=== PATIENT | female | born 1965 | race Caucasian/White ===

== ENCOUNTER → 2017-12-20 14:33 | Outpatient (CLI) | payer OTHER, SELFPAY ==
[2017-12-26 10:06] LABS: HPV APTIMA, High Risk Negative (Negative)
== END ==
PROVIDERS: Family Provider Family Medicine; PCP Family Medicine; Visit Provider Obstetrics & Gynecology
DX: Z12.4 Encounter for screening for malignant neoplasm of cervix (principal)
CPT/HCPCS: 88175; G0145

== ENCOUNTER → 2019-02-03 | Outpatient (CLI) | payer OTHER, SELFPAY ==
--- NOTE | 2019-02-03 07:00 | BI_ITS ---
MAMMOGRAPHY - BILATERAL SCREENING REASON FOR EXAM: Female, 53 years old. Routine annual screening examination. PERTINENT HISTORY: Non-contributory. TECHNIQUE: Digital bilateral breast sergei (3D mammographic acquisition) in the CC and MLO projections. 2-D mediolateral oblique (MLO) and craniocaudad (CC) views of both breasts were obtained. CAD: Full Field Digital Mammography with Computer Added Detection was performed. COMPARISON: Comparison is made with prior to examination dated December 23, 2017. FINDINGS: Breast Composition: The breasts are heterogeneously dense, which may obscure small masses. There are no dominant masses or suspicious calcifications. No other significant abnormalities are identified. There has been no significant change since the prior study. BI/SCREEN MAMM (CAD) W/SERGEI BILAT IMPRESSION: Stable bilateral screening mammogram. Yearly follow-up mammogram recommended. (A) ASSESSMENT CATEGORY: BIRADS Category 1: Negative. A letter regarding these results will be sent to the patient by the facility within 30 days. Approximately 10% of breast cancers are not detected by mammography. A normal mammogram should not delay biopsy of a clinically suspicious abnormality. [id number] Electronically Signed: Fernando Avila, at 9:24 EDT , Service support ,
== END | disposition home or self-care (01) ==
PROVIDERS: Family Provider Family Medicine; PCP Family Medicine; Referring Provider Nurse Practitioner Women's Health; Visit Provider Nurse Practitioner Women's Health
DX: Z12.31 Encounter for screening mammogram for malignant neoplasm of breast (principal)
CPT/HCPCS: 77063; 77067

== ENCOUNTER 2020-01-19 10:06 | Emergency (ER) | payer OTHER, SELFPAY ==
[2019-07-15 09:57] VITALS: BMI 20.4
[2020-01-19 10:07] VITALS: PULSE 64; RESP 16; TEMP 36.6; O2SAT 98; BMI 25.2
--- NOTE | 2020-01-19 10:27 | EKG12_ITS ---
Test Reason : Blood Pressure : / mmHG Vent. Rate : 052 BPM Atrial Rate : 052 BPM P-R Int : 158 ms QRS Dur : 086 ms QT Int : 460 ms P-R-T Axes : 019 002 012 degrees QTc Int : 427 ms Sinus bradycardia with sinus arrhythmia Voltage criteria for left ventricular hypertrophy Inferior infarct , age undetermined Abnormal ECG Confirmed by VANITA JORGENSEN, CAR ([id number]), subeditor DAWN BANDA ([id number]) on 01/26/2020 2:45:23 PM Referred By: MIGUEL ANGEL Confirmed By:CAR WALDRON MD
--- NOTE | 2020-01-19 10:29 | ED.DCSUM_ITS ---
- ER Visit Summary Date of Service: 01/19/20 Chief Complaint: High blood pressure History of Present Illness: The patient is a 54 F who presents with high blood pressure for the past 4 days. Patient states her blood pressures been in the 160s at home. Patient states she takes atenolol for her blood pressure. Patient states this has caused some bradycardia with her heart rate into the upper 40s. Patient states she called her primary care physician who told her to decrease the atenolol because of the bradycardia. Patient states she feels lightheaded when her blood pressure is high. Patient denies any chest pain or shortness of breath. Patient admits to a dry cough. Patient denies any fevers or chills. Patient denies any nausea or vomiting. Patient states she did not take her atenolol this morning. Physical Examination: Vital signs are stable except for an elevated blood pressure of 180/110. Patient is afebrile. Patient is in no acute distress. Oral mucosa is pink and moist. Neck is supple. Trachea is midline. There is no JVD noted. Heart was regular rate and rhythm. Lungs are clear and equal bilaterally. Abdomen is soft. Bowel sounds are normal. There is no tenderness. There is no rebound or guarding noted. Skin is warm dry. Cranial nerves II through XII are intact. There are no focal motor or sensory deficits noted. Extremities are intact. There is no calf tenderness or edema. Test Results: EKG showed sinus bradycardia with a rate of 52. There are no acute ST or T wave changes. CBC, basic metabolic profile, troponin were obtained and were within normal limits. Portable chest x-ray was obtained. There is no acute cardiopulmonary process. This was interpreted by the radiologist and reviewed by myself. Emergency Department Course and Treatment: Patient was given a dose of clonidine here. Patient's blood pressure improved to 130/93. Case was discussed with Dr. Rhodes. She recommended starting the patient on hydrochlorothiazide 25 mg. Patient was given a prescription for this. Patient was instructed to continue her atenolol. Patient was instructed to follow-up with her primary care physician in 5 to 7 days. Patient understood and was agreeable with the plan. All questions were answered. Disposition: Discharge home Impression: 1. Hypertension This note was generated with [employer] software. It may contain incorrect words, spelling, and punctuation that were not noted in review of the chart prior to signing ED Disposition - Plan for ED Patient: Disposition: Home or Assisted Living Diagnosis: Hypertension Instructions: ED Hypertension Established Prescriptions: Hydrochlorothiazide [Hctz] 25 mg PO DAILY #30 tab Prescription Printed Referrals: Sarah Rhodes DO [Primary Care Provider] - 5-7 Days
--- NOTE | 2020-01-19 10:31 | NURSING ---
NO OLD EKGS
[2020-01-19 11:00] VITALS: BP 180/110; PULSE 53; RESP 16; O2SAT 97
--- NOTE | 2020-01-19 11:05 | RAD_ITS ---
STUDY: X-RAY CHEST REASON FOR EXAM: Female, 54 years old. High bp since fri. TECHNIQUE: Single AP portable view of the chest. COMPARISON: None. FINDINGS: The lungs are clear and expanded. There is no demonstrated pleural abnormality. Normal size heart. Normal mediastinum and janay. Normal visualized pulmonary arteries. Normal visualized aortic arch and descending thoracic aorta. There are diffuse degenerative changes of the visualized thoracic spine. There is degenerative osteoarthritis of the bilateral shoulders. There is no demonstrated abnormality of the visualized soft tissue structures of the upper abdomen. RAD/Chest 1 View (Portable) IMPRESSION: Degenerative changes, as described above. No demonstrated acute cardiopulmonary process. Electronically Signed: Sriram Zamora, at 11:38 EDT Tel , Service support ,
[2020-01-19 11:09] LABS: Absolute Lymphocyte Count 1.48 X10^3/uL (0.83-4.51); Absolute Neutrophil Count 2.4 X10^3/uL (2.0-7.7); Basophil# 0.01 X10^3/uL; Basophil% 0.2 % (0-1); Eosinophil# 0.04 X10^3/uL; Hematocrit 42.2 % (37-47); Hemoglobin 14.3 g/dL (12.0-15.0); Lymphocyte # 1.48 X10^3/ul (4.0); Lymphocyte % 35.4 % (19-41); Mean Corp Hgb Conc 33.9 g/dL (32-36); Mean Corpuscular Hgb 33.2 pg (27.0-32.0); Mean Corpuscular Volume 97.9 fL (81-99); Mean Platelet Vol. 10.2 fl (6.2-12.0); Monocyte# 0.26 X10^3/uL; Monocyte% 6.2 % (0-10); NRBC Flagged by Analyzer 0 % (0-5); Neutrophil # 2.38 X10^3/uL (2.7-7.7); Platelet Count 257 K/mm3 (150-450); RBC Distribution Width SD 39.6 fl (35.1-43.9); Red Blood Count 4.31 M/mm3 (4.2-5.4); White Blood Count 4.2 K/mm3 (4.4-11.0)
[2020-01-19 11:21] LABS: Anion Gap 6 (5-15); BUN 16 mg/dL (7-18); BUN/Creat Ratio 16.9 RATIO (10-20); Calcium,Total 9.2 mg/dL (8.5-10.1); Chloride 109 mmol/L (98-107); Creatinine, Serum 0.95 mg/dL (0.55-1.02); EST Glomerular Filtration Rate 65 mL/min (>60); Est Glom Filt Rate - Afr Amer 79 mL/min (>60); Estimated Creatinine Clearance 48.63 ml/min; Glucose 98 mg/dL (74-106); Potassium 3.8 mmol/L (3.5-5.1); Sodium Level 144 mmol/L (136-145)
[2020-01-19 11:56] VITALS: BP 174/99
[2020-01-19] MEDS: cloNIDine HCl 0.2 MG Tablet PO (12:04)
[2020-01-19 12:09] VITALS: BP 175/97; PULSE 52; RESP 13; O2SAT 99
[2020-01-19 13:37] VITALS: BP 130/93; PULSE 51; RESP 17; O2SAT 98
[2020-01-19 14:40] VITALS: BP 108/86; PULSE 60; RESP 16; O2SAT 99
== END 2020-01-19 14:48 | disposition home or self-care (01) ==
PROVIDERS: Emergency Provider Emergency Medicine; PCP Family Medicine
DX: I10 Essential (primary) hypertension (principal)
CPT/HCPCS: 71045; 80048; 84484; 85025; 93005; 99285; A4216

== ENCOUNTER → 2020-08-30 14:15 | Outpatient (CLI) | payer OTHER, SELFPAY ==
[2020-07-18 08:15] VITALS: BMI 21.8
--- NOTE | 2020-08-30 14:18 | BI_ITS ---
MAMMOGRAPHY - BILATERAL SCREENING REASON FOR EXAM: Female, 55 years old. Routine annual screening examination. PERTINENT HISTORY: Non-contributory. TECHNIQUE: Digital bilateral breast sergei (3D mammographic acquisition) in the CC and MLO projections. 2-D mediolateral oblique (MLO) and craniocaudad (CC) views of both breasts were obtained. CAD: Full Field Digital Mammography with Computer Added Detection was performed. COMPARISON: Comparison is made with prior study dated 02/03/2019. FINDINGS: Breast Composition: The breasts are heterogeneously dense, which may obscure small masses. There are no dominant masses or suspicious calcifications. No other significant abnormalities are identified. There has been no significant change since the prior study. BI/SCREEN MAMM (CAD) W/SERGEI BILAT IMPRESSION: Stable bilateral screening mammogram. Yearly follow-up mammogram recommended. (A) ASSESSMENT CATEGORY: BIRADS Category 1: Negative. A letter regarding these results will be sent to the patient by the facility within 30 days. Approximately 10% of breast cancers are not detected by mammography. A normal mammogram should not delay biopsy of a clinically suspicious abnormality. [id number] Electronically Signed: Fernando Avila, at 9:17 EST , Service support ,
== END ==
PROVIDERS: PCP Family Medicine; Referring Provider Obstetrics & Gynecology; Visit Provider Obstetrics & Gynecology
DX: Z12.31 Encounter for screening mammogram for malignant neoplasm of breast (principal)
CPT/HCPCS: 77063; 77067

== ENCOUNTER 2021-03-02 22:37 | Emergency (ER) | payer OTHER, SELFPAY ==
[2020-07-18 08:15] VITALS: BMI 21.8
[2021-03-02 22:38] VITALS: BP 181/103; PULSE 63; RESP 16; TEMP 36.6; O2SAT 98; BMI 20.7
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
[2021-03-02 23:36] VITALS: BP 168/88; PULSE 79
== END 2021-03-02 23:36 | disposition home or self-care (01) ==
LOC: ED 23:23
PROVIDERS: Emergency Provider Emergency Medicine; PCP Family Medicine
DX: S06.0X0A Concussion without loss of consciousness, initial encounter (principal); V89.0XXA Person injured in unspecified motor-vehicle accident, nontraffic, initial encounter; Z87.891 Personal history of nicotine dependence; Z79.82 Long term (current) use of aspirin; Z79.899 Other long term (current) drug therapy
CPT/HCPCS: 99282

== ENCOUNTER → 2022-03-08 | Outpatient (CLI) | payer OTHER, SELFPAY ==
[2022-03-08 15:10] LABS: Absolute Lymphocyte Count 1.88 X10^3/uL (0.83-4.51); Absolute Neutrophil Count 3.6 X10^3/uL (2.0-7.7); Basophil# 0.01 X10^3/uL; Basophil% 0.2 % (0-1); Eosinophil# 0.05 X10^3/uL; Eosinophils% 0.8 % (0-5); Hematocrit 37.1 % (37-47); Hemoglobin 12.9 g/dL (12.0-15.0); Lymphocyte # 1.88 X10^3/ul (0.83-4.51); Lymphocyte % 30.8 % (19-41); Mean Corp Hgb Conc 34.8 g/dL (32-36); Mean Corpuscular Hgb 33.7 pg (27.0-32.0); Mean Corpuscular Volume 96.9 fL (81-99); Mean Platelet Vol. 10.3 fl (6.2-12.0); Monocyte# 0.52 X10^3/uL; Monocyte% 8.5 % (0-10); NRBC Flagged by Analyzer 0 % (0-5); Neutrophil # 3.63 X10^3/uL (2.7-7.7); Neutrophil % 59.4 % (47-70); Platelet Count 264 K/mm3 (150-450); RBC Distribution Width CV 11.6 % (11.6-14.6); RBC Distribution Width SD 40.8 fl (35.1-43.9); Red Blood Count 3.83 M/mm3 (4.2-5.4); White Blood Count 6.1 K/mm3 (4.4-11.0)
[2022-03-08 15:47] LABS: ALB/GLOB Ratio 1.3 RATIO (0.9-2.4); AST(SGOT) 41 U/L (15-37); Alanine Aminotransfer ALT/SGPT 32 U/L (13-56); Albumin, Serum 3.9 g/dL (3.2-5.0); Alkaline Phosphatase 48 U/L (45-117); Anion Gap 6 (5-15); BUN 19 mg/dL (7-18); BUN/Creat Ratio 23.7 RATIO (10-20); Calcium,Total 9.3 mg/dL (8.5-10.1); Chloride 102 mmol/L (98-107); Cholesterol 257 mg/dL (200); EST Glomerular Filtration Rate 79 mL/min (>60); Est Glom Filt Rate - Afr Amer 95 mL/min (>60); Globulin 3.1 g/dL (2.2-4.2); Glucose 96 mg/dL (74-106); High Density Lipoprotein 63 mg/dL; Potassium 3.5 mmol/L (3.5-5.1); Sodium Level 137 mmol/L (136-145); T4 Free Direct 0.89 ng/dL (0.76-1.46); Thyroid Stim Hormone (TSH) 2.37 uIU/mL (0.358-3.74); Triglycerides 83 mg/dL; Very Low Density Lipoprotein 17 mg/dL (5-40)
== END | disposition home or self-care (01) ==
LOC: MTLAB 13:19
PROVIDERS: PCP Family Medicine; Referring Provider Family Medicine; Visit Provider Family Medicine
DX: Z00.00 Encounter for general adult medical examination without abnormal findings (principal); R00.1 Bradycardia, unspecified
CPT/HCPCS: 36415; 80053; 80061; 84439; 84443; 85025

== ENCOUNTER 2022-06-09 13:52 | Emergency (ER) | payer OTHER, SELFPAY ==
[2022-06-09 13:53] VITALS: BP 169/112; PULSE 115; RESP 18; TEMP 36.3; O2SAT 99; BMI 20.7
--- NOTE | 2022-06-09 14:03 | EKG12_ITS ---
Test Reason : DYSRHYTHMIA Blood Pressure : / mmHG Vent. Rate : 079 BPM Atrial Rate : 079 BPM P-R Int : 162 ms QRS Dur : 092 ms QT Int : 380 ms P-R-T Axes : 065 073 053 degrees QTc Int : 435 ms Normal sinus rhythm Normal ECG Confirmed by VANITA JORGENSEN, CAR ([id number]), assistant editor HUE TOURE ([id number]) on 06/11/2022 9:28:22 AM Referred By: NEHAL Confirmed By:CAR WALDRON MD
--- NOTE | 2022-06-09 14:04 | EX.ED.DYSGE1 ---
HPI History of Present Illness Chief Complaint: Palpitations Narrative Narrative: Patient with past medical history of hypertension, family history of early coronary artery disease presents with lightheadedness and heart palpitations. She states that she went to lunch with her girlfriend, and afterwards, was shopping at [employer] when she felt her heart racing and pounding, not skipping a beat, and she felt lightheaded as if she were going to pass out. She had to lean over. She has improved. She denies that they were vertiginous type symptoms. No nausea or vomiting. No chest pain or shortness of breath. No diaphoresis. No recent nausea or vomiting. No diarrhea. She did state that she felt flushed all over her body. [facility] Medical History Abnormal Pap smear of cervix Genital HSV HSV (herpes simplex virus) infection Home Medications B-complex with vitamin C 1 cap PO QDAY 12/20/17 [History Last Taken Unknown] cholecalciferol (vitamin D3) 50 mcg (2,000 unit) capsule 2,000 unit PO QDAY 12/20/17 [History Last Taken Unknown] hydrochlorothiazide 25 mg tablet 25 mg PO DAILY #30 tabs 01/19/20 [Rx Last Taken Unknown] magnesium oxide 400 mg PO DAILY 07/18/20 [History Last Taken Unknown] aspirin 81 mg tablet 81 mg PO DAILY 03/02/21 [History Last Taken Unknown] valacyclovir 500 mg tablet (Valtrex) 500 mg PO QDAY #90 tabs 08/08/21 [Rx Last Taken Unknown] fluconazole 150 mg tablet 150 mg PO .COMPLEX #2 tabs 08/09/21 [Rx Last Taken Unknown] estradiol-norethindrone acet 1 mg-0.5 mg tablet (Mimvey) 1 tab PO QDAY #84 tabs 06/06/22 [Rx Last Taken Unknown] Allergy/AdvReac Type Severity Reaction Status Date / Time No Known Allergies Allergy Verified 06/09/22 13:55 Family History Father Heart disease Prostate cancer Mother Diabetes Hypertension Surgical History S/P hernia repair Status post colposcopy Social History Smoking Status: Former smoker alcohol intake: current details: wine occasionally substance use type: does not use caffeine: Yes what type of physical activity do you participate in: yoga and weight training frequency: 3-4 times per week seatbelt use: always do you feel safe at home: Yes additional social history: 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 [place] flushed all over her body. HEENT: No sore throat. No neck pain. No loss of vision. No rhinorrhea. Cardiovascular: No chest pain. Positive fast pounding heart rate/palpitations. No pedal edema. Respiratory: No cough, no shortness of breath. Abdominal: No abdominal pain. No nausea. No vomiting. Genitourinary: No dysuria. No hematuria. Musculoskeletal: No myalgias. No arthralgias. Neurologic: No headaches. No dizziness. Positive lightheadedness. Skin: No rash. No change in color. Psychiatric: No depression. No anxiety. EXAM Physical Exam Narrative Exam Narrative: Afebrile. Vital signs noted. HEENT: Normocephalic. Atraumatic. PERRL, EOMI. Neck soft and supple. No point tenderness or step off. Cardiovascular: Positive regular tachycardia. No murmurs, rubs, or gallops appreciated. Respiratory: No tachypnea. Lungs clear to auscultation bilaterally. Gastrointestinal: Abdomen soft, nontender, with normoactive bowel sounds. No rebound or guarding. Neurological: Awake. Alert. Nonfocal, nonlateralizing. Skin: No rash. Normal color. No pallor. Musculoskeletal: No pedal edema. Full range of motion extremities. Const Vital Signs: 06/09/22 13:53 06/09/22 14:17 06/09/22 14:51 Temperature 97.3 F L Temperature Source Temporal Pulse Rate 115 H 63 Pulse Rate [Lying] 56 L Pulse Rate [Sitting (for 1 minute prior to obtaining)] 55 L Pulse Rate [Standing (for 1 minute prior to obtaining)] 55 L Respiratory Rate 18 12 Blood Pressure 169/112 H Blood Pressure [Lying] 136/81 H Blood Pressure [Sitting (for 1 minute prior to obtaining)] 144/86 H Blood Pressure [Standing (for 1 minute prior to obtaining)] 155/94 H Blood Pressure Mean 131 Blood Pressure Mean [Lying] 99 Blood Pressure Mean [Sitting (for 1 minute prior to obtaining)] 105 Blood Pressure Mean [Standing (for 1 minute prior to obtaining)] 114 Pulse Ox 99 99 Oxygen Delivery Method Room Air Room Air 06/09/22 16:53 06/09/22 15:25 Temperature Temperature Source Pulse Rate 48 L 50 L Pulse Rate [Lying] Pulse Rate [Sitting (for 1 minute prior to obtaining)] Pulse Rate [Standing (for 1 minute prior to obtaining)] Respiratory Rate 12 12 Blood Pressure 127/92 H 141/86 H Blood Pressure [Lying] Blood Pressure [Sitting (for 1 minute prior to obtaining)] Blood Pressure [Standing (for 1 minute prior to obtaining)] Blood Pressure Mean 103 104 Blood Pressure Mean [Lying] Blood Pressure Mean [Sitting (for 1 minute prior to obtaining)] Blood Pressure Mean [Standing (for 1 minute prior to obtaining)] Pulse Ox 98 99 Oxygen Delivery Method Room Air Room Air MDM MDM MDM Narrative Medical decision making narrative: Comprehensive workup was pursued. She was boulused normal saline intravenously, one litre. Orthostatics are negative. CBC is normal with a normal white count and a normal Hemoglobin of 14.8. Electrolyte panel is grossly unremarkable except glucose of 114 with a normal anion gap. Initial high sensitivity troponin is negative at 5 with repeat of 8 for a delta troponin of less than 7. Heart rate is bradycardic in the 50s. She feels improved. Chest x-ray in one view interpreted by myself shows no acute process. I feel she had palpitations with a vasovagal near syncope. I feel she can be discharged home with follow up to her primary care provider. She has an appointment in approximately 5 days. Return instructions were reviewed. Disposition is discharged home in stable condition. Lab Data Labs: Laboratory Results - last 24 hr 06/09/22 06/09/22 06/09/22 14:15 14:15 16:11 WBC 4.9 RBC 4.24 Hgb 14.8 Hct 42.1 MCV 99.3 H MCH 34.9 H MCHC 35.2 RDW Std Deviation 39.3 RDW Coeff of Oxana 10.9 L Plt Count 299 MPV 9.9 Immature Gran % (Auto) 0.200 Neut % (Auto) 61.7 Lymph % (Auto) 31.8 Garrett % (Auto) 5.7 Eos % (Auto) 0.4 Baso % (Auto) 0.2 Absolute Neuts (auto) 3.0 Absolute Lymphs (auto) 1.55 Nucleated RBC % 0 Sodium 142 Potassium 3.6 Chloride 106 Carbon Dioxide 29.0 Anion Gap 7 BUN 18 Creatinine 0.93 Estim Creat Clear Calc 60.46 Est GFR (MDRD) Af Amer 80 Est GFR (MDRD) Non-Af 66 BUN/Creatinine Ratio 19.4 Glucose 114 H Calcium 8.8 Total Bilirubin 0.40 AST 23 ALT 25 Alkaline Phosphatase 45 Troponin I High Sens 5 8 Total Protein 7.3 Albumin 3.7 Globulin 3.6 Albumin/Globulin Ratio 1.0 Radiography Diagnostic Testing: Clinical Impression(s) from Imaging Studies Chest X-Ray 06/09/22 14:28 IMPRESSION: Normal x-ray examination of the chest. Electronically Signed: Adriana Lawrence MD at 14:47 EDT Reading Location ID and State: [facility] / [place] Tel , Service support , Discharge Plan Triage Chief Complaint: Palpitations ED Provider: Yony Desouza Dx/Rx/DC Orders Clinical Impression: Palpitations, Vasovagal near syncope Instructions: ED Palpitations, ED Near-Fainting, Uncertain Cause Prescriptions: No Action B-complex with vitamin C capsule capsule 1 cap PO QDAY cholecalciferol (vitamin D3) 2,000 unit capsule 2,000 unit PO QDAY magnesium oxide 400 mg magnesium capsule 400 mg PO DAILY fluconazole 150 mg tablet 150 mg PO .COMPLEX Qty: 2 0RF Rx Instructions: 150 mg PO take one po now and repeat in 3 days hydrochlorothiazide 25 MG tablet 25 mg PO DAILY Qty: 30 0RF aspirin 81 mg Tablet 81 mg PO DAILY valacyclovir [Valtrex] 500 mg tablet 500 mg PO QDAY Qty: 90 4RF estradiol-norethindrone acet [Mimvey] 1-0.5 mg tablet 1 tab PO QDAY Qty: 84 0RF Primary Care Provider: Sarah Rhodes Referrals: Sarah Rhodes DO [Primary Care Provider] - 06/14/22 Disposition Disposition: Home, Self Care Discharge Date/Time: 06/09/22 17:37
[2022-06-09 14:17] VITALS: PULSE 63; RESP 12; O2SAT 99
[2022-06-09] MEDS: 0.9% Normal Saline 1,000 ML 1000 ML IV (14:18)
[2022-06-09 14:25] LABS: Absolute Lymphocyte Count 1.55 X10^3/uL (0.83-4.51); Basophil# 0.01 X10^3/uL; Basophil% 0.2 % (0-1); Eosinophil# 0.02 X10^3/uL; Eosinophils% 0.4 % (0-5); Hematocrit 42.1 % (37-47); Hemoglobin 14.8 g/dL (12.0-15.0); Lymphocyte # 1.55 X10^3/ul (0.83-4.51); Lymphocyte % 31.8 % (19-41); Mean Corp Hgb Conc 35.2 g/dL (32-36); Mean Corpuscular Hgb 34.9 pg (27.0-32.0); Mean Corpuscular Volume 99.3 fL (81-99); Mean Platelet Vol. 9.9 fl (6.2-12.0); Monocyte# 0.28 X10^3/uL; Monocyte% 5.7 % (0-10); NRBC Flagged by Analyzer 0 % (0-5); Neutrophil # 3.01 X10^3/uL (2.7-7.7); Neutrophil % 61.7 % (47-70); Platelet Count 299 K/mm3 (150-450); RBC Distribution Width CV 10.9 % (11.6-14.6); RBC Distribution Width SD 39.3 fl (35.1-43.9); Red Blood Count 4.24 M/mm3 (4.2-5.4); White Blood Count 4.9 K/mm3 (4.4-11.0)
--- NOTE | 2022-06-09 14:28 | RAD_ITS ---
STUDY: X-RAY CHEST REASON FOR EXAM: Female, 56 years old. Palpitations TECHNIQUE: Single frontal view of the chest. COMPARISON: 01/19/2020 FINDINGS: The lungs are clear and expanded. There is no demonstrated pleural abnormality. Normal size heart. Normal mediastinum and janay. Normal visualized pulmonary arteries. Normal visualized aortic arch and descending thoracic aorta. Normal visualized thoracic spine. Normal visualized ribs, clavicles, and shoulders. There is no demonstrated abnormality of the visualized soft tissue structures of the upper abdomen. RAD/Chest 1 View (Portable) IMPRESSION: Normal x-ray examination of the chest. Electronically Signed: Adriana Lawrence MD at 14:47 EDT ,
[2022-06-09 14:43] LABS: AST(SGOT) 23 U/L (15-37); Alanine Aminotransfer ALT/SGPT 25 U/L (13-56); Albumin, Serum 3.7 g/dL (3.2-5.0); Alkaline Phosphatase 45 U/L (45-117); Anion Gap 7 (5-15); BUN 18 mg/dL (7-18); BUN/Creat Ratio 19.4 RATIO (10-20); Calcium,Total 8.8 mg/dL (8.5-10.1); Chloride 106 mmol/L (98-107); Creatinine, Serum 0.93 mg/dL (0.55-1.02); EST Glomerular Filtration Rate 66 mL/min (>60); Est Glom Filt Rate - Afr Amer 80 mL/min (>60); Estimated Creatinine Clearance 60.46 ml/min; Globulin 3.6 g/dL (2.2-4.2); Glucose 114 mg/dL (74-106); Potassium 3.6 mmol/L (3.5-5.1); Protein, Total 7.3 g/dL (6.4-8.2); Sodium Level 142 mmol/L (136-145); Troponin-I HS (w/2H Reflex) 5 pg/mL (3.0-54.0)
[2022-06-09 14:51] VITALS: BP 136/81; BP 144/86; BP 155/94; PULSE 55; PULSE 56
[2022-06-09 15:25] VITALS: BP 141/86; PULSE 50; RESP 12; O2SAT 99
[2022-06-09 16:25] LABS: Reflex Troponin-HS? (from REC) Y
[2022-06-09 16:44] LABS: Troponin-I HS 8 pg/mL (3.0-54.0)
[2022-06-09 16:53] VITALS: BP 127/92; PULSE 48; RESP 12; O2SAT 98
== END 2022-06-09 17:37 | disposition home or self-care (01) ==
PROVIDERS: Emergency Provider Emergency Medicine; PCP Family Medicine; Visit Provider Emergency Medicine
DX: R00.2 Palpitations (principal); R55 Syncope and collapse; Z87.891 Personal history of nicotine dependence
CPT/HCPCS: 71045; 80053; 84484; 85025; 93005; 96360; 99284; J7030; A4216

== ENCOUNTER → 2022-07-04 | Outpatient (CLI) | payer OTHER, SELFPAY ==
--- NOTE | 2022-07-04 07:00 | BI_ITS ---
MAMMOGRAPHY - BILATERAL SCREENING REASON FOR EXAM: Female, 56 years old. Routine annual screening examination. PERTINENT HISTORY: Non-contributory. TECHNIQUE: Digital bilateral breast sergei (3D mammographic acquisition) in the CC and MLO projections. 2-D mediolateral oblique (MLO) and craniocaudad (CC) views of both breasts were obtained. CAD: Full Field Digital Mammography with Computer Added Detection was performed. COMPARISON: Comparison is made with prior examination dated 08/30/2020 and 02/03/2019. FINDINGS: Breast Composition: The breasts are heterogeneously dense, which may obscure small masses. There are no dominant masses or suspicious calcifications. No other significant abnormalities are identified. There has been no significant change since the prior study. BI/SCRN MAMM (CAD)W/SERGEI BILAT IMPRESSION: Stable bilateral screening mammogram. Yearly follow-up mammogram recommended. (A) ASSESSMENT CATEGORY: BIRADS Category 1: Negative. A letter regarding these results will be sent to the patient by the facility within 30 days. Approximately 10% of breast cancers are not detected by mammography. A normal mammogram should not delay biopsy of a clinically suspicious abnormality. [id number] Electronically Signed: Fernando Avila MD at 15:04 EDT ,
== END | disposition home or self-care (01) ==
LOC: OPBI 06:58
PROVIDERS: PCP Family Medicine; Visit Provider Family Medicine
DX: Z12.31 Encounter for screening mammogram for malignant neoplasm of breast (principal)
CPT/HCPCS: 77063; 77067

== ENCOUNTER → 2022-08-21 | Outpatient (CLI) | payer OTHER, SELFPAY ==
[2022-08-31 17:04] LABS: HPV APTIMA, High Risk Negative (Negative)
== END | disposition home or self-care (01) ==
LOC: LABSPEC 10:48
PROVIDERS: PCP Family Medicine; Visit Provider Nurse Practitioner Women's Health
DX: Z12.4 Encounter for screening for malignant neoplasm of cervix (principal)
CPT/HCPCS: 87624; 88175; G0145

== ENCOUNTER → 2023-07-05 | Outpatient (CLI) | payer OTHER, SELFPAY ==
--- NOTE | 2023-07-05 08:00 | BI_ITS ---
MAMMOGRAPHY - BILATERAL SCREENING REASON FOR EXAM: Female, 57 years old. Routine annual screening examination. PERTINENT HISTORY: Non-contributory. TECHNIQUE: Digital bilateral breast sergei (3D mammographic acquisition) in the CC and MLO projections. 2-D mediolateral oblique (MLO) and craniocaudad (CC) views of both breasts were obtained. CAD: Full Field Digital Mammography with Computer Added Detection was performed. COMPARISON: Comparison is made with prior study dated July 04, 2022 and August 30, 2020. FINDINGS: Breast Composition: The breasts are extremely dense, which lowers the sensitivity of mammography. There are no dominant masses or suspicious calcifications. No other significant abnormalities are identified. There has been no significant change since the prior study. BI/SCRN MAMM (CAD)W/SERGEI BILAT IMPRESSION: Stable bilateral screening mammogram. Yearly follow-up mammogram recommended. (A) ASSESSMENT CATEGORY: BIRADS Category 1: Negative. A letter regarding these results will be sent to the patient by the facility within 30 days. Approximately 10% of breast cancers are not detected by mammography. A normal mammogram should not delay biopsy of a clinically suspicious abnormality. [id number] Electronically Signed: Fernando Avila MD at 9:30 EDT ,
== END | disposition home or self-care (01) ==
LOC: OPBI 07:58
PROVIDERS: PCP Family Medicine; Referring Provider Family Medicine; Visit Provider Family Medicine
DX: Z12.31 Encounter for screening mammogram for malignant neoplasm of breast (principal)
CPT/HCPCS: 77063; 77067

== ENCOUNTER → 2023-10-16 | Outpatient (CLI) | payer OTHER, SELFPAY ==
--- OUTSIDE RECORDS SUMMARY | 2023-10-16 12:09 | XMS RPT_ITS | CCD ---
Author Name Unknown Address [address] [place] [address] Organization [facility] Care Team Providers Care Pulling Unit Operator Name Role Phone PAN VIDAL Unavailable Unavailable SEAN FAY Unavailable Unavailable SEAN FAY Unavailable Unavailable SEAN FAY Unavailable Unavailable SEAN FAY Unavailable Unavailable SEAN FAY Unavailable Unavailable Allergies Allergy Classification Reported Allergen(s) Allergy Type Date of Onset Reaction(s) Facility (1 source) Felodipine; Translations: [FELODIPINE] Drug Allergy 01-14-2007 [facility] Repository Problems Active Problems Problem Classification Problem Date Documented Date Episodic/Chronic Residual codes; unclassified (1 source) Other specified postprocedural states; Translations: [Other specified postprocedural states] Onset: 06-03-2018 Unclassified (1 source) Unknown / UNK(Unknown) Onset: 03-11-2018 Past or Other Problems Problem Classification Problem Date Documented Date Episodic/Chronic Other eye disorders (1 source) Dermatochalasis of right upper eyelid; Translations: [Dermatochalasis of right upper eyelid] Onset: 03-12-2018 Episodic Other eye disorders (1 source) Dermatochalasis of left upper eyelid; Translations: [Dermatochalasis of left upper eyelid] Onset: 03-12-2018 Episodic Other screening for suspected conditions (not mental disorders or infectious disease) (1 source) Encounter for screening mammogram for malignant neoplasm of breast; Translations: [Encounter for screening mammogram for malignant neoplasm of breast] Onset: 12-23-2017 Episodic Results Test Name Value Interpretation Reference Range Facil ity Encounters Encounter Date Encounter Type Care Provider Facility Start: 07-15-2018 End: 07-16-2018 Patient encounter procedure SEAN FAY [facility] Start: 06-10-2018 End: 06-10-2018 Patient encounter procedure PAN VIDAL [facility] Start: 06-03-2018 End: 06-03-2018 Patient encounter procedure SEAN FAY [facility] Start: 05-22-2018 End: 06-09-2018 Patient encounter procedure SEAN FAY [facility] Start: 03-11-2018 End: 03-14-2018 Patient encounter procedure SEAN FAY [facility] Start: 12-23-2017 End: 12-23-2017 Patient encounter procedure PAN VIDAL [facility] Summary Purpose Family History No Family History Records Found Advance Directives No Advanced Directives Records Found Procedure Findings Note HNO ID: [id number]: Peggy williamson (Res) CricketService: OphthalmologyAuthor Type: ResidentType: Brief Op NoteFiled: 06/04/2018 2:31 PMNote Text:BRIEF OPERATIVE NOTE?LOG ID: [id number]/Procedure Date: 06/03/2018Incision/Procedure Start Time: 10:48 AMIncision Close/Procedure End Time: 11:04 AMSurgeon(s)/Proceduralist(s) and Proof Coins Inspector(s):Surgeon(s) and Role: * Sean Kayla Fay - Primary * Brandon Harley - Resident - Assisting??Procedure(s): Procedure(s) (LRB):BLEPHAROPLASTY UPPER MEDICALLY NECESSARY (Bilateral)?Anesthesia: Monitored Anesthesia Care?Findings: None?Estimated Blood Loss: <5 cc?Specimens: * No specimens in log *Implantable Devices: * No implants in log *Drains: None?Complications: None?Pre-Op/Pre-Procedure Diagnosis: dermatochalasis, bilateral?Post-Op/Post-Procedure Diagnosis: See operative report.?SIGNATURE: Brandon Harley MD PATIENT NAME: Dallin BrandonATE: June 04, 2018 : 2:31 PM PAGER/CONTACT #: [phone] Additional Source Comments INFORMATION SOURCE (unrecogn ized section and content) FOR RECORDS PERTAINING TO PATIENTS WHO ARE OR HAVE BEEN ENROLLED IN A CHEMICAL DEPENDENCY/SUBSTANCEABUSE PROGRAM, SOME INFORMATION MAY BE OMITTED. This clinical summary was aggregated from multiple sources. Caution should be exercised in using it in the provision of clinical care. This summary normalizes information from multiple sources, and as a consequence, information in this document may materially change the coding, format and clinical context of patient data. In addition, data may be omitted in some cases. CLINICAL DECISIONS SHOULD BE BASED ON THE PRIMARY CLINICAL RECORDS. [facility] [employer] [facility]. provides no warranty or guarantee of the accuracy or completeness of information in this document.
[2023-10-16 15:31] LABS: Absolute Lymphocyte Count 1.86 X10^3/uL (0.83-4.51); Absolute Neutrophil Count 3.2 X10^3/uL (2.0-7.7); Basophil# 0.01 X10^3/uL; Basophil% 0.2 % (0-1); Eosinophil# 0.04 X10^3/uL; Eosinophils% 0.7 % (0-5); Hematocrit 41.7 % (37-47); Hemoglobin 13.9 g/dL (12.0-15.0); Lymphocyte # 1.86 X10^3/ul (0.83-4.51); Lymphocyte % 32.9 % (19-41); Mean Corp Hgb Conc 33.3 g/dL (32-36); Mean Corpuscular Hgb 33.3 pg (27.0-32.0); Mean Corpuscular Volume 99.8 fL (81-99); Mean Platelet Vol. 10.4 fl (6.2-12.0); Monocyte# 0.53 X10^3/uL; Monocyte% 9.4 % (0-10); NRBC Flagged by Analyzer 0 % (0-5); Neutrophil # 3.21 X10^3/uL (2.7-7.7); Neutrophil % 56.6 % (47-70); Platelet Count 314 K/mm3 (150-450); RBC Distribution Width CV 11.1 % (11.6-14.6); RBC Distribution Width SD 40.5 fl (35.1-43.9); Red Blood Count 4.18 M/mm3 (4.2-5.4); White Blood Count 5.7 K/mm3 (4.4-11.0)
[2023-10-16 16:04] LABS: ALB/GLOB Ratio 1.2 RATIO (0.9-2.4); AST(SGOT) 15 U/L (15-37); Alanine Aminotransfer ALT/SGPT 23 U/L (13-56); Albumin, Serum 3.8 g/dL (3.2-5.0); Alkaline Phosphatase 43 U/L (45-117); Anion Gap 4 (5-15); BUN 18 mg/dL (7-18); BUN/Creat Ratio 19.8 RATIO (10-20); Chloride 102 mmol/L (98-107); Cholesterol 271 mg/dL (200); Creatinine, Serum 0.91 mg/dL (0.55-1.02); EST Glomerular Filtration Rate 68 mL/min (>60); Est Glom Filt Rate - Afr Amer 82 mL/min (>60); Globulin 3.3 g/dL (2.2-4.2); Glucose 96 mg/dL (74-106); High Density Lipoprotein 63 mg/dL; Protein, Total 7.1 g/dL (6.4-8.2); Sodium Level 137 mmol/L (136-145); Triglycerides 145 mg/dL; Very Low Density Lipoprotein 29 mg/dL (5-40)
== END | disposition home or self-care (01) ==
LOC: BFHLAB 11:24
PROVIDERS: PCP Family Medicine; Visit Provider Family Medicine
DX: E78.5 Hyperlipidemia, unspecified (principal); Z51.81 Encounter for therapeutic drug level monitoring
CPT/HCPCS: 36415; 80053; 80061; 85025

== ENCOUNTER 2024-01-02 08:19 | Emergency (ER) | payer OTHER, SELFPAY ==
[2024-01-02 08:19] VITALS: BP 189/112; BP 190/111; PULSE 56; PULSE 60; RESP 16; RESP 18; TEMP 36.1; O2SAT 100; BMI 20.5
[2024-01-02] MEDS: Ondansetron ODT 4 MG Tablet PO (08:57)
[2024-01-02] MEDS: Meclizine HCl 25 MG Tablet PO (08:57)
[2024-01-02 10:19] VITALS: BP 155/105; PULSE 46; RESP 16; O2SAT 98
--- NOTE | 2024-01-02 10:26 | EX.ED.DYSGE1 ---
HPI History of Present Illness Chief Complaint: Dizziness Informant: patient Onset/Context/Timing Onset: Yesterday Narrative Narrative: Patient presents secondary to concern for vertigo. She states that she laid down in bed last night and rolled over and felt like everything was spinning. She states that she was able to get things calmed down and was able to sleep. When she woke this morning she still felt nauseated and a little off balance. She tried Shamir maneuvers at home with only mild improvement. She denies history of vertigo. No recent head injury. [facility] Medical History (Updated 01/02/24 @ 16:[address] Melisa Galloway MD) Abnormal Pap smear of cervix Genital HSV HSV (herpes simplex virus) infection Hypertension Home Medications B-complex with vitamin C 1 cap PO QDAY 12/20/17 [History Last Taken Unknown] cholecalciferol (vitamin D3) 50 mcg (2,000 unit) capsule 2,000 unit PO QDAY 12/20/17 [History Last Taken Unknown] hydrochlorothiazide 25 mg tablet 25 mg PO DAILY #30 tabs 01/19/20 [Rx Last Taken Unknown] magnesium oxide 400 mg PO DAILY 07/18/20 [History Last Taken Unknown] aspirin 81 mg tablet 81 mg PO DAILY 03/02/21 [History Last Taken Unknown] valacyclovir 500 mg tablet (Valtrex) 500 mg PO QDAY #90 tabs 09/16/23 [Rx Last Taken Unknown] estradiol-norethindrone acet 1 mg-0.5 mg tablet (Mimvey) 1 tab PO QDAY #84 tabs 10/03/23 [Rx Last Taken Unknown] fluconazole 150 mg tablet 150 mg PO DAILY 1 dose #2 tabs 10/03/23 [Rx Last Taken Unknown] meclizine 25 mg tablet 25 mg PO TID PRN dizziness #14 tabs 01/02/24 [Rx Last Taken Unknown] ondansetron 4 mg disintegrating tablet 4 mg PO Q8H PRN PRN Nausea #10 tabs 01/02/24 [Rx Last Taken Unknown] Allergy/AdvReac Type Severity Reaction Status Date / Time No Known Allergies Allergy Verified 01/02/24 08:19 Family History Father Heart disease Prostate cancer Mother Diabetes Hypertension Surgical History S/P hernia repair Status post colposcopy Social History Smoking Status: Never smoker alcohol intake: current details: wine occasionally substance use type: does not use caffeine: Yes what type of physical activity do you participate in: yoga and weight training frequency: 3-4 times per week seatbelt use: always do you feel safe at home: Yes additional social history: 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 [employer] ROS ROS ED Constitutional Constitutional ED: Denies chills or fever(s) Eyes Eyes: Denies change in vision or discharge from eye(s) ENT ENT ED: Denies discharge from eye(s), rhinorrhea or sore throat Cardiovascular Cardiovascular: Denies chest pain or palpitations Respiratory/Chest Respiratory/Chest: Denies cough or dyspnea Gastrointestinal Gastrointestinal: Reports nausea; Denies abdominal pain, diarrhea or vomiting Musculoskeletal Musculoskeletal: Denies back pain or extremity pain Integumentary Denies Abrasions or rash Neurologic Neurologic: Denies headache(s) or weakness Allergic/Immunologic Allergic/Immunologic ED: Denies lip swelling or urticaria EXAM Physical Exam Const Vital Signs: 01/02/24 08:19 01/02/24 08:19 01/02/24 10:19 Temperature 97 F L Temperature Source Temporal Pulse Rate 56 L 60 46 L Respiratory Rate 18 16 16 Blood Pressure 189/112 H 190/111 H 155/105 H Blood Pressure Mean 137 137 121 Pulse Ox 100 100 98 Oxygen Delivery Method Room Air Room Air 01/02/24 10:31 Temperature 98.1 F Temperature Source Pulse Rate 46 L Respiratory Rate 16 Blood Pressure 155/105 H Blood Pressure Mean 121 Pulse Ox 98 Oxygen Delivery Method Positive well nourished and well developed General Appearance ED: well developed HEENT Reports moist mucous membranes Eyes EOMs intact bilaterally Neck no lymphadenopathy Chest Wall inspection of chest normal and palpation of chest normal Resp normal respiratory effort and clear to auscultation bilaterally Cardio regular rate and regular rhythm GI non-tender Palpation: soft Extremity normal to inspection Neuro oriented x3 and no sensory deficits noted Motor Exam: strength 5/5 throughout Psych mental status grossly normal Skin no rashes or lesions noted MDM MDM MDM Narrative Medical decision making narrative: Patient given Zofran and Antivert p.o. After approximately 1 hour patient was ambulated in the hallway and felt much improved. She is given prescription for both Zofran and Antivert to use as needed. Symptoms are all consistent with peripheral vertigo I do not believe she needs further imaging or laboratory workup. Discharge Plan Triage Chief Complaint: Dizziness ED Provider: Melisa Galloway Dx/Rx/DC Orders Clinical Impression: Vertigo Instructions: ED Vertigo, Unspecified Prescriptions: New ondansetron 4 mg tablet,disintegrating 4 mg PO Q8H PRN PRN (Reason: Nausea) Qty: 10 0RF meclizine 25 mg tablet 25 mg PO TID PRN (Reason: dizziness) Qty: 14 0RF No Action B-complex with vitamin C capsule capsule 1 cap PO QDAY cholecalciferol (vitamin D3) 2,000 unit capsule 2,000 unit PO QDAY magnesium oxide 400 mg magnesium capsule 400 mg PO DAILY estradiol-norethindrone acet [Mimvey] 1-0.5 mg tablet 1 tab PO QDAY Qty: 84 3RF fluconazole 150 mg tablet 150 mg PO DAILY Qty: 2 0RF Rx Instructions: administer one pill today, wait 3 days and take other pill hydrochlorothiazide 25 MG tablet 25 mg PO DAILY Qty: 30 0RF aspirin 81 mg Tablet 81 mg PO DAILY valacyclovir [Valtrex] 500 mg tablet 500 mg PO QDAY Qty: 90 1RF Primary Care Provider: Sarah Rhodes Referrals: Sarah Rhodes DO [Primary Care Provider] - As Needed Activity Restrictions/Additional Instructions: You can perform Shamir maneuvers as needed. Disposition Disposition: Home, Self Care Discharge Date/Time: 01/02/24 10:32
[2024-01-02 10:31] VITALS: BP 155/105; PULSE 46; RESP 16; TEMP 36.7; O2SAT 98
== END 2024-01-02 10:32 | disposition home or self-care (01) ==
PROVIDERS: Emergency Provider Emergency Medicine; PCP Family Medicine; Visit Provider Emergency Medicine
DX: R42 Dizziness and giddiness (principal)
CPT/HCPCS: 99282

== ENCOUNTER → 2024-04-14 | Outpatient (CLI) | payer OTHER, SELFPAY | END | disposition home or self-care (01) | LOC: LABSPEC 09:33 | PROVIDERS: PCP Family Medicine; Referring Provider Physician Assistant; Visit Provider Physician Assistant | DX: R30.0 Dysuria (principal) | CPT/HCPCS: 87077; 87086; 87088; 87186 ==

== ENCOUNTER → 2024-11-30 | Outpatient (CLI) | payer OTHER, SELFPAY ==
--- NOTE | 2024-11-30 10:15 | BI_ITS ---
EXAM: SCRN MAMM (CAD)W/SERGEI BILAT DATE: 11/30/2024 CLINICAL HISTORY: F, Age 59 y/o , SCREENING FOR BREAST CANCER BREAST CANCER RISK ASSESSMENT: Has not been calculated. TECHNIQUE: Bilateral screening digital breast tomosynthesis with 2D and 3D images. Computer aided detection. COMPARISON: Prior exam(s) dated 07/05/2023 and 07/04/2022. FINDINGS: TISSUE DENSITY: The breast tissue is heterogenously dense, which may obscure small masses. Bilateral Breast Mammographic Findings: No suspicious masses, suspicious cluster of microcalcifications, architectural distortion or secondary sign of malignancy is identified in either breast. Stable focal nodular masslike densities are seen in both breasts. On the sergei images these do not appear to be worrisome for malignancy. BI/SCRN MAMM (CAD)W/SERGEI BILAT IMPRESSION: Right Breast: BIRADS 2 BENIGN FINDING. Left Breast: BIRADS 2 BENIGN FINDING. OVERALL FINAL ASSESSMENT: BIRADS 2 BENIGN FINDING RECOMMENDATION: Routine annual follow-up in 1 Year A letter with findings and recommendations will be mailed to the patient. Reading Location: [id number]
== END | disposition home or self-care (01) ==
LOC: OPBI 10:10
PROVIDERS: PCP Family Medicine; Referring Provider Advanced Practice Midwife; Visit Provider Advanced Practice Midwife
DX: Z12.31 Encounter for screening mammogram for malignant neoplasm of breast (principal)
CPT/HCPCS: 77063; 77067

== ENCOUNTER 2025-05-31 21:40 | Emergency (ER) | payer OTHER, SELFPAY ==
--- OUTSIDE RECORDS SUMMARY | 2024-12-01 15:27 | XMS RPT_ITS ---
Author Name Auto Generated Organization [facility] Care Team Providers Care Analyzer Sales Name Role Phone LATRICE MATHIAS Referring Unavailable RADHA, GENO Primary Care Unavailable DAVID AMBRIZ Attending Unavailab le RADHA, GENO Primary Care Unavailable LATRICE MATHIAS Attending Unavailable LATRICE MATHIAS Referring Unavailable HAROON GRANDE Attending Unavailable HAROON GRANDE Referring Unavailable MALYS, GENO Primary Care Unavailable MALEDWARD, GENO Primary Care Unavailable HAROON GRANDE Referring Unavailable LATRICE MATHIAS Attending Unavailable RADHA, GENO Primary Care Unavailable SELF, SELF Referring Unavailable LATRICE MATHIAS Attending Unavailable MALYS, GENO Primary Care Unavailable HAROON GRANDE Attending Unavailable HAROON GRANDE Referring Unavailable HAROON GRANDE Admitting Unavailable MALYS, GENO Primary Care Unavailable HAROON GRANDE Attending Unavailable HARJINDER, HAROON Galvan Referring Unavailable PROBLEMS DATE TYPE CONDITION / CODE ATTENDING STATUS [facility] 12/01/2024 Admitting Diagnosis Other specified postprocedural states / Z98.890(ICD-10) LATRICE MATHIAS [facility] 11/16/2024 Admitting Diagnosis Other acute postprocedural pain / G89.18(ICD-10) HAROON GRANDE [facility] 11/12/2024 Admitting Diagnosis Encounter for other preprocedural examination / Z01.818(ICD-10) HARJINDER HAROON Mandy [facility] 11/04/2024 Admitting Diagnosis Anesthesia of skin / R20.0(ICD-10) HAROON GRANDE [facility] 11/04/2024 Admitting Diagnosis Paresthesia of skin / R20.2(ICD-10) HARJINDER HAROON Mandy [facility] 11/04/2024 Admitting Diagnosis Carpal tunnel syndrome, right upper limb / G56.01(ICD-10) GRANDEHAROON CANTOR [facility] PROCEDURES No Procedure Records Found RESULTS ANES PRE-OP Observed: 11/16/2024 7:46 AM Status: COMPLETED Source: [facility] This report has been cancell ed. CMP FASTING Collected: 11:17 AM Status: F Source: [facility] TYPE CODE TESTS RESULT OUT OF RANGE REFERENCE UNITS LAB GLF GLUCOSE FASTING 116 High 70-100 MG/DL Result Comment: NORMAL <100 mg/dL PREDIABETES 101-126 mg/dL DIABETES 126 mg/dL or higher LAB BUN BLOOD UREA NITROGEN 19 7-20 MG/DL LAB CRET CREATININE SERUM 0.80 0.7-1.2 MG/DL LAB NA SODIUM 135 Low 137-145 MMOL/L LAB K POTASSIUM 3.6 3.5-5.1 MMOL/L LAB CL CHLORIDE 103 98-107 MMOL/L Result Comment: Please note: Triglyceride levels of 600mg/dL or higher may positively bias chloride results by approximately 2.1 mmol LAB CA CALCIUM 9.1 8.4-10.2 MG/DL LAB TP TOTAL PROTEIN 7.1 6.3-8.2 GM/DL LAB ALB ALBUMIN 4.4 3.5-5.0 G/dl LAB TBIL BILIRUBIN TOTAL 0.6 0.2-1.3 MG/DL LAB AST AST 30 14-36 IU/L LAB ALKP ALK PHOSPHATASE 47 38-126 IU/L LAB CO2 CO2 28 22-30 MMOL/L LAB AG A:G RATIO 1.6 1.3-2.2 RATIO LAB ALT ALT 16 <35 IU/L LAB GFR EST. GFR,Non 78 ml/min/1 .73sq.m LAB GFRB EST. GFR, 94 ml/min/1 .73sq.m LAB GFRCOM GFR Information Average GFR for 50-59 years old = 93. Result Comment: Chronic Kidn ey disease, GFR = <60. Kidney failure, GFR = <15. The GFR estimate is not adjusted for extreme body surface area or acute process, nor has it been validated for women or ethnic groups other than and . Testing performed at [place], [place] [address] Performed By: #### CMPF #### Testing performed at [address] [place] [address] ALLERGIES No Allergies Records Found ENCOUNTERS ADMIT/DISCHARGE ACCOUNT NUMBER ADMITTING ENCOUNTER CLASS LOCATION SOURCE 12/01/2024 [id number] [facility] [place] [address] 11/16/2024/11/17/19 [id number] GRANDE HAROON Mandy [facility]oom: GPERI [facility] 11/12/2024 [id number] [facility] [place] [address] 11/04/2024 [id number] [facility] [id number] [facility] [place] [address] 09/08/2024 [id number] [facility] [place] [address] 09/08/2024 [id number] [facility] [place] [address] PAYERS ENCOUNTER GUARANTOR PAYER SUBSCRIBER SOURCE 12/01/2024 ARIELLE GUZMAN: [id number] [place], [place] [address]Tel: () Primary Insurance:MMOPoli cy Number: [id number] tive Date:1921-09-76Sw an Name:MANAGED CARE ARIELLE THOMAS: [id number] [address] 11/16/2024 ARIELLE LONOB: [id number] [place], [place] [address]Tel: () Primary Insurance:MMOPoli cy Number: [id number] tive Date:6555-07-15Jz an Name:MANAGED CARE ARIELLE THOMAS: [id number] [address] 11/12/2024 ARIELLE FORRESTOB: [id number] [place], [place] [address]Tel: (HP) Primary Insurance:MMOPoli cy Number: [id number] tive Date:4697-62-38Lq an Name:MANAGED CARE ARIELLE FORRESTOB: [id number] [place], [place] [address] [place] [address] 11/04/2024 ARIELLE FORRESTOB: [place], [place] [address]Ofz: (HP) Primary Insurance:MMOPoli cy Number: [id number] tive Date:9778-92-21Ha an Name:MANAGED CARE ARIELLE FORRESTOB: [id number] [place], [place] [address] [place] [address] 09/24/2024 ARIELLE FORRESTOB: [place], [place] [address]Psp: (HP) Primary Insurance:MMOPoli cy Number: [id number] tive Date:8493-13-68Sc an Name:MANAGED CARE ARIELLE FORRESTOB: [id number] [place], [place] [address] [place] [address] 09/08/2024 ARIELLE FORRESTOB: [place], [place] [address]Icr: (HP) Primary Insurance:MMOPoli cy Number: [id number] tive Date:9665-71-31Of an Name:MANAGED CARE ARIELLE FORRESTOB: [id number] [place], [place] [id number] [place] [address] 09/08/2024 ARIELLE FORRESTOB: [place], [place] [address]Iek: (HP) Primary Insurance:MMOPoli cy Number: [id number] tive Date:3233-44-53Ru an Name:MANAGED CARE ARIELLE FORRESTOB: [id number] [place], [place] [address] [place] [address]
[2025-05-31 21:41] VITALS: BP 147/86; PULSE 64; RESP 17; TEMP 36.6; O2SAT 100
[2025-05-31 21:42] VITALS: BMI 19.5
[2025-05-31] MEDS: Lidocaine 1% (20 ml mdv) 20 ML Vial 10 ML INFILT (22:55)
[2025-05-31 23:33] VITALS: BP 147/86; PULSE 64; RESP 17; TEMP 36.6; O2SAT 100
--- NOTE | 2025-05-31 23:34 | EX.ED.GENINJ ---
HPI History of Present Illness Chief Complaint: Laceration Narrative Narrative: Patient is a 59-year-old female presenting to the emergency department for a right hand laceration. Patient states she was trying to open something with a screwdriver and stabbed herself in the right hand. She is unsure when her last tetanus vaccine was but states that she does not want 1 here. She denies any other injuries. [facility] Medical History Hypertension Genital HSV Home Medications Medication Instructions Recorded Last Taken Type B-complex with vitamin C 1 cap PO QDAY 12/20/17 Unknown History cholecalciferol (vitamin D3) 50 2,000 unit PO QDAY 12/20/17 Unknown History mcg (2,000 unit) capsule hydrochlorothiazide 25 mg tablet 25 mg PO DAILY #30 tabs 01/19/20 Unknown Rx magnesium oxide 400 mg PO DAILY 07/18/20 Unknown History meclizine 25 mg tablet 25 mg PO TID PRN dizziness #14 tabs 01/02/24 Unknown Rx ascorbic acid (vitamin C) 500 mg 500 mg PO DAILY 04/14/24 Unknown History tablet atenolol 25 mg tablet 25 mg PO DAILY 04/14/24 Unknown History vitamin E (dl, acetate) 180 mg 180 mg PO DAILY 04/14/24 Unknown History (400 unit) capsule estradiol 0.01% (0.1 mg/gram) 0.25 appful vaginal 2XW 01/27/25 Unknown History vaginal cream estradiol 0.0375 mg/24 hr 1 patch transdermal 2XW #24 ea 03/01/25 Unknown Rx semiweekly transdermal patch (Vivelle-Dot) progesterone micronized 100 mg 100 mg PO QHS #90 caps 03/01/25 Unknown Rx capsule (Prometrium) valacyclovir 500 mg tablet 500 mg PO DAILY #90 TABLETS 03/09/25 Unknown Rx Allergy/AdvReac Type Severity Reaction Status Date / Time No Known Allergies Allergy Verified 05/31/25 21:43 Family History Father Heart disease Prostate cancer Mother Diabetes Hypertension Surgical History S/P hernia repair Status post colposcopy Social History Smoking Status: Never smoker alcohol intake: current details: wine occasionally substance use type: does not use caffeine: Yes what type of physical activity do you participate in: yoga and weight training frequency: 3-4 times per week seatbelt use: always do you feel safe at home: Yes additional social history: 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 No acute distress HEENT: Head is normocephalic and atraumatic, sinuses nontender, pupils equal round and reactive. Nares are patent. Oropharynx and throat exams normal. Neck: Supple without lymphadenopathy nontender Cardiovascular: Regular rate and rhythm, no murmurs. No rubs or gallops. Normal S1 and S2 Respiratory: Clear to auscultation bilaterally. No wheezes, rales, rhonchi Abdominal: Soft and nontender. Normal bowel sounds. No guarding or rebound. Nonsurgical abdomen Extremities: The webspace between the third and fourth digits has a 2 cm superficial laceration. No tendon or bony involvement. No active bleeding. No FB noted on wound exploration. No tenderness. No bruising. Normal range of motion. Normal sensation. Radial pulses intact bilaterally. Skin: No rash or redness. Neurological: Cranial nerves II through XII are grossly intact. Normal strength and sensation. Normal cerebellar function The rest of the physical exam is unremarkable Const Vital Signs: 05/31/25 21:41 05/31/25 23:33 Temperature 97.9 F 97.9 F Temperature Source Temporal Pulse Rate 64 64 Respiratory Rate 17 17 Blood Pressure 147/86 H 147/86 H Blood Pressure Mean 106 106 Pulse Ox 100 100 Oxygen Delivery Method Room Air MDM MDM MDM Narrative Medical decision making narrative: Patient is a 59-year-old female presenting to the emergency department for hand injury. Patient was seen and examined. Vitals are stable. Patient resting bed comfortably no acute distress. Given patient is unsure when her last tetanus vaccine was, I recommended updating here. She declines. States she only wants the tetanus vaccine if it does not have "anything else in it." I discussed risks of not receiving it today. She has capacity and understands. I also recommended obtaining an x-ray to rule out any fracture.. She declines x-ray as well and states that "everything is fine". Wound was copiously irrigated. 1% lidocaine without epi was used to locally anesthetize area and two 4.0 Ethilon simple interrupted sutures were placed. Dressing was applied. Patient was given wound care instructions. Instructed to return if she develops any redness, warmth or drainage from the area and to keep the wound clean and dry. Patient discharged from the Emergency Department. I do not feel that the patient's evaluation reveals any acute reason for admission at this time. I instructed them to either follow-up with their primary care physician or promptly return to the Emergency Department for reevaluation should symptoms worsen or new symptoms develop. I explained what symptoms would indicate the need to return to the emergency department. Shared decision making was used. The patient voiced understanding of the treatment plan and is agreeable with it. Clinical impression: right hand laceration History & Record Review Discussion w/independent historian: Patient Discharge Plan Triage Chief Complaint: Laceration ED Provider: Patricia Chua Dx/Rx/DC Orders Clinical Impression: Laceration Instructions: Wound Care, ED Laceration Extremity Prescriptions: No Action B-complex with vitamin C capsule 1 cap PO QDAY cholecalciferol (vitamin D3) 2,000 unit capsule 2,000 unit PO QDAY magnesium oxide 400 mg magnesium capsule 400 mg PO DAILY atenolol 25 mg tablet 25 mg PO DAILY vitamin E (dl, acetate) 180 mg (400 unit) capsule 180 mg PO DAILY ascorbic acid (vitamin C) 500 mg tablet 500 mg PO DAILY estradiol 0.01 % (0.1 mg/gram) cream 0.25 appful vaginal 2XW hydrochlorothiazide 25 MG tablet 25 mg PO DAILY Qty: 30 0RF meclizine 25 mg tablet 25 mg PO TID PRN (Reason: dizziness) Qty: 14 0RF estradiol [Vivelle-Dot] 0.0375 mg/24 hr patch semiweekly 1 patch transdermal 2XW Qty: 24 3RF Rx Instructions: apply 1 patch for 3 days alternating with 1 patch for 4 days each week progesterone micronized [Prometrium] 100 mg capsule 100 mg PO QHS Qty: 90 3RF valacyclovir 500 mg tablet 500 mg PO DAILY Qty: 90 3RF Primary Care Provider: Sarah Rhodes Referrals: Sarah Rhodes DO [Primary Care Provider, Family Practice] - 5-7 Days Activity Restrictions/Additional Instructions: Watch the cut for signs of infection including redness, drainage or warmth. Return to the ED immediately with any new signs. Need to have the sutures removed in 5 to 7 days. Keep the wound clean and dry. Your evaluation in the Emergency Department did not reveal any acute reason for admission. However, I want to emphasize that you may be early in the course of a disease process or illness even if it is not present. For this reason you should follow-up within 24 hours for reevaluation with either your primary care physician or if necessary back here in the Emergency Department. You should return to the Emergency Department immediately if your symptoms worsen or new symptoms develop. Print Language: Setswana Disposition Disposition: Home, Self Care Discharge Date/Time: 05/31/25 23:33
== END 2025-05-31 23:33 | disposition home or self-care (01) ==
PROVIDERS: Emergency Provider Student in an Organized Health Care Education/Training Program; PCP Family Medicine; Visit Provider Student in an Organized Health Care Education/Training Program
DX: S61.411A Laceration without foreign body of right hand, initial encounter (principal); W27.0XXA Contact with workbench tool, initial encounter; I10 Essential (primary) hypertension; Z79.899 Other long term (current) drug therapy
CPT/HCPCS: 12001; 99282